=== PATIENT | male | born 1970 | race Caucasian/White ===

== ENCOUNTER → 2019-01-09 | Day surgery (SDC) | payer MEDICAID ==
[~2019-01-09] VITALS: Ht 172.7 cm; Wt 77.3 kg
[~2019-01-09] MED LIST: LIDOCAINE/PF 2% 5 ML VIAL INJ ONE; SODIUM CHLORIDE 0.9% 0 ML IV ONE; SODIUM CHLORIDE 0.9% 1,000 ML IV ONE
== END | disposition home or self-care (01) ==
LOC: SURGERY 05:50
PROVIDERS: ATTEND Internal Medicine Gastroenterology
DX: K62.5 Hemorrhage of anus and rectum (principal); K51.20 Ulcerative (chronic) proctitis without complications; K64.8 Other hemorrhoids; F17.200 Nicotine dependence, unspecified, uncomplicated
CPT/HCPCS: 45380; 88305; C1769; J3490; J7030

== ENCOUNTER 2022-03-09 16:33 | Emergency (ER) | payer OTHER ==
[~2022-03-09] VITALS: Ht 172.7 cm; Wt 7.8 kg
[2022-03-09] MEDS ORDERED: htn PO (16:53)
[2022-03-09] MEDS ORDERED: SILD100T71 PO (17:40)
[2022-03-09] MEDS ORDERED: MESA800T PO (17:40)
[2022-03-09] MEDS ORDERED: ENAL1TAB11 PO (17:40)
[2022-03-09] MEDS ORDERED: LIDOCAINE 1% 10 ML VIAL PERC ONE (17:45)
[2022-03-09 18:15] VITALS: BP 145/93
[2022-03-09] MEDS ORDERED: NEOMYCIN/BACITRACIN/POLYMYXIN B OINTMENT PACKET TP ONE (18:15)
[2022-03-09] MEDS ORDERED: IBUP-1492 PO (18:34)
[2022-03-09] MEDS ORDERED: BACI28OI29 TP (18:36)
[2022-03-09] MEDS ORDERED: CEPH-558 PO (18:36)
== END 2022-03-09 18:49 | disposition home or self-care (01) ==
LOC: EMS 16:33
DX: S61.213A Laceration without foreign body of left middle finger without damage to nail, initial encounter (principal); I10 Essential (primary) hypertension; X58.XXXA Exposure to other specified factors, initial encounter; Y93.89 Activity, other specified; Y92.098 Other place in other non-institutional residence as the place of occurrence of the external cause; Y99.8 Other external cause status
CPT/HCPCS: 99283; 12001; J3490